=== PATIENT | female | born 1955 | race American Indian/Alaskan Native ===

== ENCOUNTER 2017-11-28 08:03 | Day surgery (SDC) | payer BC ==
[2017-11-23 12:26] VITALS: BMI 38.7
[2017-11-28] MEDS ORDERED: Bacitracin Ointment 30 GM TUBE ONE (08:43)
[2017-11-28] MEDS ORDERED: Lidocaine 1% w Epi 1:100,000 Inj ONE (08:44)
[2017-11-28] MEDS ORDERED: Propofol 10 mg/ml Inj (20 ML) ONE (09:04)
[2017-11-28] MEDS ORDERED: Midazolam 2 MG/2 ML VIAL ONE (09:04)
[2017-11-28] MEDS ORDERED: Lidocaine 2% Inj (20ml) ONE (09:14)
[2017-11-28] MEDS ORDERED: HYDROmorphone 0.5 mg/0.5 ml ISec IVP PRN (10:42)
[2017-11-28] MEDS ORDERED: Sodium Chloride 0.9% 1,000 ML IV SCH (10:45)
[2017-11-28 11:14] VITALS: PULSE 95
--- NOTE | 2017-11-28 11:46 | RAD ---
PROCEDURE: Fluoroscopy up to 1 hour HISTORY: BATTERY CHANGE COMPARISON: TECHNIQUE: Fluoroscopy was provided in the operating room. 4.7 seconds of fluoro time. Three images were submitted FINDINGS: The study shows removal and replacement of the spinal stimulator device for battery exchange IMPRESSION: As above
[2017-11-28 11:50] VITALS: RESP 20; TEMP 97.5
[2017-11-28 12:36] VITALS: BP 140/84; O2SAT 94
--- NOTE | 2017-11-28 19:27 | OP ---
PROCEDURE DATE: 11/28/2017 PREOPERATIVE DIAGNOSES: 1. Post lumbar laminectomy syndrome. 2. Lumbar radiculopathy. 3. Lumbosacral radiculopathy. POSTOPERATIVE DIAGNOSES: 1. Post lumbar laminectomy syndrome. 2. Lumbar radiculopathy. 3. Lumbosacral radiculopathy. PROCEDURE: Replacement of internal pulse generator of [employer] spinal cord stimulator under fluoroscopic guidance. SURGEON: Jeff Islas MD TYPE OF ANESTHESIA: Local anesthesia and conscious sedation. ESTIMATED BLOOD LOSS: Approximately 2 mL METHOD OF SURGERY : The patient signed informed consent form in the preop area after all risks and complications were explained and all questions were answered. An IV was started in the preop area and IV fluid administration continued throughout the procedure. Blood pressure, heart rate, pulse oximetry, and cardiac monitoring were monitored throughout the procedure. Intravenous sedation appropriate to the procedure was administered by the anesthesiologist and was accurately reflected in the patient's chart. The patient was prepped and draped in sterile fashion in the prone position. The patient's spine was surveyed under fluoroscopic guidance and appropriate anatomical landmarks were identified and internal pulse generator was identified in the left gluteal pocket. Replacement of internal pulse generator . Under direct fluoroscopic visualizations, old internal pulse generator was identified under fluoroscopic visualization in the left gluteal area, so after appropriate local anesthesia with lidocaine with epinephrine and mixed with sodium bicarbonate as a buffer using 25-gauge 1.5 inch skin needle, a 6 cm horizontal incision was made in the gluteal area above the old internal pulse generator. The skin was dissected down to the deep fascia then using blunt dissection, the battery was retrieved making sure that the leads were not injured. The battery was removed out of the left gluteal pocket and the leads were disconnected from the old batter. Then the leads were inspected and they were intact and then they were connected to the new internal pulse generator [employer] battery. At this point, the connections were checked and impedance were checked and old connections were intact. At this point, the new internal pulse generator [employer] Intellis was reimplanted again in the same left gluteal pocket. Then the subcutaneous tissue was closed using 2-0 Vicryl and the skin was closed using skin glue Dermabond. The skin incision was covered by sterile dressing. The patient tolerated the procedure very well, was in good condition at the conclusion of the procedure. COMPLICATIONS: None. DISPOSITION: 1. The patient was discharged to the recovery room in a good condition. 2. Discharge instructions were provided and explained. 3. Call for any questions or concern. 4. Apply ice to the dressing site. 5. The patient to follow up in the office in two weeks. Jeff Islas MD
== END 2017-11-28 12:30 | disposition home or self-care (01) ==
LOC: SDS 08:03
PROVIDERS: ATTEND Specialist
DX: M96.1 Postlaminectomy syndrome, not elsewhere classified (principal); M54.17 Radiculopathy, lumbosacral region; I10 Essential (primary) hypertension; I25.10 Atherosclerotic heart disease of native coronary artery without angina pectoris
CPT/HCPCS: 63685; 82948; C1820; J0690; J1170; J2250; J2704; J3010; J7040; J7120